=== PATIENT | male | born 1985 | race Caucasian/White ===

== ENCOUNTER → 2016-10-27 | Outpatient (CLI) | payer OTHER | LOC: M SLEEP 19:29 | PROVIDERS: ATTEND Nurse Practitioner Adult Health | DX: G47.30 Sleep apnea, unspecified (principal) ==

== ENCOUNTER → 2016-12-03 | Outpatient (CLI) | payer OTHER | LOC: M SLEEP 19:02 | PROVIDERS: ATTEND Nurse Practitioner Adult Health | DX: G47.33 Obstructive sleep apnea (adult) (pediatric) (principal) ==

== ENCOUNTER → 2017-01-29 | Outpatient (CLI) | payer OTHER ==
--- NOTE | 2017-01-29 14:55 | REP ---
Scrotal sonography: History: Hydrocele and varicocele. Findings: High-resolution bilateral scrotal sonography is performed. No intratesticular mass lesion is seen on either side. Right testicular dimensions are 4.6 x 2.3 x 3.2 cm. Left testis measures 4.4 x 1.9 x 3.0 cm. There are small bilateral hydroceles. There are one or two scattered microcalcifications in each testis. Epididymi are unremarkable. Doppler flow is normal to both testes with resistive indices 0.53 and 0.56 on the right and left respectively. There is no sonographic evidence of significant varicocele. Impression: Small bilateral hydroceles. No other sonographic scrotal abnormality. Signed by Otoniel Hinton MD 01/29/2017 04:28 P
== END ==
LOC: M SMT 12:59
PROVIDERS: ATTEND Nurse Practitioner Women's Health
DX: N43.3 Hydrocele, unspecified (principal)

== ENCOUNTER → 2017-02-04 | Outpatient (CLI) | payer OTHER ==
--- NOTE | 2017-02-04 13:43 | REP ---
MRI LIVER WITH AND WITHOUT CONTRAST: TECHNIQUE: Multiple sequences obtained prior to and following the intravenous administration of 20 mL gadolinium. Recent ultrasound at [place] showed multiple subcentimeter echogenic areas throughout the liver. MRI was recommended. There subtle diffuse heterogeneous signal on all sequences. With a somewhat granular pattern of signal diffusely throughout the liver. No discrete measurable nodules are seen in any sequence. On the in-phase and [id number] images, there is no evidence of fatty infiltration. On the post contrast images, there is again somewhat heterogeneous enhancement with a granular pattern of non-measurable micronodules which are not enhancing. There is no discrete measurable enhancing mass. The spleen is normal in size with no intrinsic abnormality. The adrenal glands are normal. The pancreas has a normal appearance. The kidneys have a normal appearance. There is no hydronephrosis. I seen no adenopathy in the visualized abdomen. There is no free fluid in the visualized abdomen. IMPRESSION: Diffuse heterogeneous signal and enhancement throughout the liver without a discrete measurable nodule or mass. The signal and enhancement pattern is diffusely granular in appearance with possible diffuse tiny micronodules present throughout the liver, which are not enhancing. The findings could represent multiple very tiny biliary hamartomas, which have not coalesced into discrete measurable nodules. Other diffusely infiltrating entities involving the liver are also in the differential diagnosis, including diffuse fibrotic infiltration or metabolic abnormalities. No suspicious enhancing liver mass is seen. Signed by Matti Ware MD 02/04/2017 04:28 P
== END ==
LOC: M RAD 11:57
PROVIDERS: ATTEND Family Medicine
DX: R10.9 Unspecified abdominal pain (principal)